=== PATIENT | female | born 1990 | race Caucasian/White ===

== ENCOUNTER 2016-12-16 14:58 | Inpatient (IN) ==
--- NOTE | 2016-12-16 17:47 | Emergency Department Note ---
Disposition Clinical Impression: Abscess, neck Disposition: Admitted As Inpatient Condition: Fair Referrals: NO,PCP [Primary Care Provider] - Forms: ED Satisfaction Letter Time of Disposition: 18:50 Skin/Abscess/FB HPI Chief complaint: ED Skin/Abscess/Foreign Body Stated complaint: neck abscess Time Seen by Provider: 12/16/16 17:42 Source: patient Mode of arrival: ambulatory Limitations: no limitations Nursing Notes Reviewed: Yes Vital Signs Reviewed: Yes HPI Narrative: Patient is a 26-year-old female with recent diagnosis of neck abscess and cellulitis yesterday in the ER. She presents today due to worsening pain in the right side of the neck. She was seen yesterday by Dr. Jean and Scottie Kimble and had a CT of the neck performed. They spoke with Dr. Westbrook yesterday who recommended against bedside I&D or drainage with a needle. The patient was placed on clindamycin, told to use warm compresses and to return today for recheck and/or sooner if she had any new or worsening symptoms. She presents today with worsening pain. She says that the redness is about the same as yesterday. Denies any fevers, nausea, vomiting, chest pain, shortness breath, dysphagia, throat swelling. She was supposed to contact Dr. Westbrook's office today but did not. Previous Rx's Medication Instructions Recorded Clindamycin [Cleocin] 300 mg PO TID 7 Days 12/15/16 Allergies Allergy/AdvReac Type Severity Reaction Status Date / Time sulfamethoxazole AdvReac See Verified 12/15/16 14:14 [From Bactrim] Comments trimethoprim [From Bactrim] AdvReac See Verified 12/15/16 14:14 Comments All systems ED: reviewed and negative except as stated. Constitutional: Denies: fever Cardiovascular: Denies: chest pain Respiratory: Denies: cough, dyspnea Gastrointestinal: Denies: abdominal pain, nausea, vomiting Musculoskeletal: Reports: neck pain Integumentary: Reports: lesions Past Medical History - Past Medical History Attestation: Yes The following information was validated with the patient. Source: patient Medical history: Reports: asthma Surgical history: Reports: Psychiatric history: Reports: no psych history [employer] history: Reports: no [employer] history - Social History Smoking Status: Current every day smoker Smokeless Tobacco Status: No Alcohol use: Reports: none Drug use: Reports: IV Drug Use Physical Exam - General Limitations: no limitations General appearance: alert, in no apparent distress - Head Head exam: atraumatic, normocephalic, normal inspection - Eye Eye exam: Present: normal appearance, PERRL, EOMI - ENT ENT exam: normal exam, normal oropharynx, mucous membranes moist - Neck Neck exam: Present: other (Fluctuant approximately 2 cm x 2 cm abscess overlying the right neck/sternocleidomastoid region. Associated cellulitis approximately 5 cm beyond abscess margin. No numbness to palpation. No active pus drainage at this time.) - Chest Chest inspection: Present: normal inspection, symmetric chest wall rise - Respiratory Respiratory exam: Present: normal lung sounds bilaterally - Cardiovascular Cardiovascular exam: Present: regular rate, normal rhythm, normal heart sounds - Extremities Exam Extremities exam: Present: normal inspection, full ROM. Absent: pedal edema - Neurological Exam Neurological exam: Present: alert, oriented X3 - Psychiatric Psychiatric exam: Present: normal affect, normal mood - Skin Skin exam: Present: warm, dry, intact, normal color Course Course Narrative: Patient is tachycardic at 113 on presentation. The rest of the vitals were within normal limits. Afebrile. Physical exam shows Fluctuant approximately 2 cm x 2 cm abscess overlying the right neck/sternocleidomastoid region. Associated cellulitis approximately 5 cm beyond abscess margin. No numbness to palpation. No active pus drainage at this time. Since patient is worsening in terms of symptoms, location of the abscess prevents bedside drainage, and surgery will not be able to see patient outpatient until monday at earliest, admission for IV antibiotics and surgery consult was discussed with the patient. She is agreeable with this plan. We will start the patient on vancomycin and clindamycin. We will draw a CBC, BMP, blood cultures. 19:59 patient is a white blood cell count of 14. Technically, with elevated white blood cell count, tachycardia, and patient meet sepsis criteria. Cultures are drawn. We will withdrawal lactic acid, will also give 30 mL per kilogram fluids. Vital Signs Temperature 97.8 F 12/16/16 15:16 Pulse Rate 113 12/16/16 15:16 Respiratory Rate 18 12/16/16 15:16 Blood Pressure 121/78 12/16/16 15:16 O2 Sat by Pulse Oximetry 99 07/21/17 15:16 Temperature 97.8 F 12/16/16 15:16 Pulse Rate 113 12/16/16 15:16 Respiratory Rate 0 12/16/16 18:19 Blood Pressure 0/0 12/16/16 18:19 O2 Sat by Pulse Oximetry 99 12/16/16 15:16 Oxygen Delivery Oxygen Delivery Room Air Skin/Abscess/Foreign Body - MDM Narrative Medical decision making narrative: Patient is tachycardic at 113 on presentation. The rest of the vitals were within normal limits. Afebrile. Physical exam shows Fluctuant approximately 2 cm x 2 cm abscess overlying the right neck/sternocleidomastoid region. Associated cellulitis approximately 5 cm beyond abscess margin. No numbness to palpation. No active pus drainage at this time. Since patient is worsening in terms of symptoms, location of the abscess prevents bedside drainage, and surgery will not be able to see patient outpatient until monday at earliest, admission for IV antibiotics and surgery consult was discussed with the patient. She is agreeable with this plan. We will start the patient on vancomycin and clindamycin. We will draw a CBC, BMP, blood cultures. 19:59 patient is a white blood cell count of 14. Technically, with elevated white blood cell count, tachycardia, and patient meet sepsis criteria. Cultures are drawn. We will withdrawal lactic acid, will also give 30 mL per kilogram fluids. Dr. Lopez consulted for abscess. Order placed. - Medical Records Medical records reviewed: Yes I reviewed the patient's medical records. - Lab Data Lab results reviewed: Yes I reviewed the patient's lab results. Result diagrams: 12/16/16 19:21 12/16/16 19:21 Lab Results 12/16/16 12/16/16 12/16/16 Range/Units 19:21 19:21 20:00 WBC 14.3 H (4.3-11.1) K/mcL RBC 4.41 (3.82-4.97) M/mcL Hgb 12.7 (11.5-15.4) g/dL Hct 38.0 (35.3-44.9) % MCV 86.2 (83.0-100.0) fL MCH 28.8 (28.0-33.3) pg MCHC 33.4 (31.6-35.5) g/dL RDW 14.7 H (11.5-14.5) % Plt Count 314 (140-400) K/mcL MPV 9.3 L (9.4-12.4) fL Immature Gran % 0.4 (0-4) % Seg Neutrophils % 90.7 % Lymphocytes % 5.6 % Monocytes % 2.4 % Eosinophils % 0.6 % Basophils % 0.3 % Neutrophils # 13.0 H (1.6-8.9) K/mcL Lymphocytes # 0.8 (0.6-4.6) K/mcL Monocytes # 0.4 (0.0-1.3) K/mcL Eosinophils # 0.1 (0.0-0.6) K/mcL Basophils # 0.1 (0.0-0.2) K/mcL Sodium 134 L (136-145) mEq/L Potassium 3.9 (3.5-4.5) mEq/L Chloride 103 (98-109) mEq/L Carbon Dioxide 23 (19-29) mEq/L BUN 14 (7-20) mg/dL Creatinine 0.65 (0.57-1.11) mg/dL Est GFR ( Amer) > 60 (> 60) Est GFR (Non-Af Amer) > 60 (> 60) BUN/Creatinine Ratio 22 (6-26) Glucose 134 H (70-99) mg/dL Calculated Osmolality 280 (280-300) Lactic Acid 2.4 H (0.5-2.2) mmol/L Calcium 9.4 (8.6-10.8) mg/dL S.B.A.R. - S.B.A.R. Situation: Demographics, MOA Background: Presenting Complaint, Relevant PMH, Meds, & Allergies Assessment: Vital Signs, Course and respsone to treatment, Exam Concerns, Patient/Family Expectation, Pertinant Lab Results, Outstanding Labs Recommendation: Barrier(s) to disposition, Recommendation based on pending studies, treatments, or consults Attestation Statement - Attestation Attestation: I examined this patient and my medical decision-making was reviewed with the Resident Physician. I agree with the documented findings, disposition and treatment plan as described except to the extent set forth below. Patient emergency department with an abscess on her neck. Seen yesterday for the same. She had a CT scan done. I discussed with surgery who would see her as an outpatient. She has not called to arrange follow-up. Placed on clindamycin. She states is more painful. Plan. IV antibiotics and admit. Antibiotics starting. Patient meets SIRS/sepsis criteria with tachycardia and elevated white blood cell count.
[2016-12-16] MEDS ORDERED: Clindamycin 900 MG/50 ML 900 MG/50 ML IV.SOLN IVPB ONE (18:42)
[2016-12-16] MEDS ORDERED: Vancomycin 750 MG in D5% in Water 250 ML IVPB ONE (18:42)
[2016-12-16 19:27] LABS: Basophils # 0.1 K/mcL (0.0-0.2); Basophils % 0.3 %; Eosinophils # 0.1 K/mcL (0.0-0.6); Eosinophils % 0.6 %; Hemoglobin 12.7 g/dL (11.5-15.4); Immature Granulocytes % 0.4 % (0-4); Lymphocytes # 0.8 K/mcL (0.6-4.6); Lymphocytes % 5.6 %; Mean Corpuscular HGB Conc 33.4 g/dL (31.6-35.5); Mean Corpuscular Hemoglobin 28.8 pg (28.0-33.3); Mean Corpuscular Volume 86.2 fL (83.0-100.0); Mean Platelet Volume 9.3 fL (9.4-12.4); Monocytes # 0.4 K/mcL (0.0-1.3); Monocytes % 2.4 %; Platelet Count 314 K/mcL (140-400); Red Blood Count 4.41 M/mcL (3.82-4.97); Red Cell Distribution Width 14.7 % (11.5-14.5); Segmented Neutrophils % 90.7 %
[2016-12-16 19:39] LABS: BUN/Creatinine Ratio 22 (6-26); Blood Urea Nitrogen 14 mg/dL (7-20); Calcium 9.4 mg/dL (8.6-10.8); Carbon Dioxide 23 mEq/L (19-29); Chloride 103 mEq/L (98-109); Glucose 134 mg/dL (70-99); Osmolality,Calculated 280 (280-300); Potassium 3.9 mEq/L (3.5-4.5); Sodium 134 mEq/L (136-145); eGFR For African Americans > 60 (> 60); eGFR For Non-African Americans > 60 (> 60)
[2016-12-16] MEDS ORDERED: 0.9 % Sodium Chloride 1,000 ML IVC ONE ×2 (19:46)
[2016-12-17] MEDS ORDERED: Ondansetron 4 MG/2 ML VIAL IVP PRN (00:05)
[2016-12-17] MEDS ORDERED: Naloxone 0.4 MG/ML INJ IVP PRN (00:05)
--- NOTE | 2016-12-17 00:10 | Internal Med History&Physical ---
Date of Encounter: 12/17/16 Time of Encounter: 00:20 Assessment and Plan (1) Abscess of skin or subcutaneous tissue Current visit: No Status: Acute Abscess over right-side of neck Continue IV vancomycin and IV clindamycin IV morphine when necessary Cultures pending CT scan of the neck done on 12/15/2016 - shows a peripherally enhancing low attenuation collection in the right lateral lower neck within more superficial to right sternocleidomastoid consistent with abscess and overlying cellulitis Surgery consult pending labs in a.m. Qualifiers: Site of cutaneous abscess: neck Qualified Code(s): L02.11 - Cutaneous abscess of neck (2) Hepatitis C Current visit: No Status: Chronic Qualifiers: Viral hepatitis chronicity: chronic Hepatic coma status: without hepatic coma Qualified Code(s): B18.2 - Chronic viral hepatitis C (3) Asthma Current visit: No Status: Chronic No acute exacerbation Qualifiers: Asthma severity: mild intermittent Asthma complication type: uncomplicated Qualified Code(s): J45.20 - Mild intermittent asthma, uncomplicated (4) Tobacco abuse Current visit: Yes Status: Acute Counseled about cessation, Nicotine Patch Internal Medicine - H&P: HPI Chief complaint: Abscess of her neck Admitted From: Emergency Dept Plans for Post Hospital Care: Home History of present illness: Ms. Manzo is a 26 year old female with past medical history of asthma and hepatitis C. She presents to the ED with complaints of right neck pain and swelling. On examination patient is awake and alert. Not in any distress. Able to provide history. Family is at bedside. Patient states she developed a small boil on the right side of her neck about 4 days ago. It is gradually worsened in terms of size and her pain is also worsening. Patient states pain is worse when she tries to turn her head to either side. She denies fever, denies nausea or vomiting or chest pain or shortness of breath or throat swelling or dysphagia. No discharge from abscess site. Patient was placed on clindamycin and has also been told to use for compresses. Patient had a surgical outpatient follow-up scheduled. She states the redness and pain is worsening. Rates the pain 7 out of 10. No other associated symptoms. Patient is being admitted for abscess on the right side of her neck. She will be on IV vancomycin and IV clindamycin. Surgical consult pending. I&D will be required. Patient has been explained about her condition and plan of care. Understood and agreed. No unanswered questions. CODE STATUS full code. Past Med Surg Social Fam HX - Past Medical History Medical history: asthma, hepatitis (Chronic hepatitis C) Psychiatric history: no psych history - Past Surgical History Surgical History: - Social History Smoking Status: Current every day smoker Packs per day: 1 pack Smokeless Tobacco Status: No Alcohol use: none Drug use: IV Drug Use - Family History Mother Hx Family Cardiac Disorders: Yes (HTN) Hx Family Endocrine Disorder: Yes (DM) Father Hx Family Medical Disorders: No Internal Medicine - H&P: Meds Clindamycin [Cleocin] 300 mg PO TID 7 Days 12/15/16 [Rx] Allergies sulfamethoxazole [From Bactrim] Adverse Reaction (Verified 12/15/16 14:14) See Comments trimethoprim [From Bactrim] Adverse Reaction (Verified 12/15/16 14:14) See Comments All Systems PM: A 10-system review of systems was performed and is negative for pertinent findings except as documented above in the HPI. - Constitutional Constitutional: no fatigue, no fever(s), no weakness - EENT Eyes: no blurry vision - Cardiovascular Cardiovascular ROS IM: no chest pain, no diaphoresis, no dyspnea, no dyspnea on exertion, no lightheadedness, no orthopnea, no syncope - Respiratory Respiratory: no cough, no dyspnea, no dyspnea on exertion, no wheezing, no chest congestion - Gastrointestinal Gastrointestinal: no abdominal pain, no belching, no diarrhea, no melena, no nausea, no vomiting - Genitourinary Genitourinary: no dysuria - Musculoskeletal Musculoskeletal ROS IM: no arthralgias - Integumentary Additional comments: Right side of neck abscess - with pain and redness - Neurological Neurological ROS: no abnormal gait, no confusion, no dizziness, no numbness, no tingling - Constitutional Vitals: Temp Pulse Resp BP Pulse Ox 97.8 F 87 14 116/71 100 12/16/16 21:52 12/16/16 21:52 12/16/16 21:52 12/16/16 21:52 12/16/16 21:52 General appearance: Present: A&O X 3, no acute distress, underweight, answers questions appropriately - Head Head exam: Present: atraumatic - Eye Eye exam: Present: EOMI - ENT ENT exam: Present: mucous membranes moist - Neck Additional comments: Fluctuant 2 cm x 2 cm abscess of the right side of neck and the sternocleidomastoid region with associated cellulitis beyond the margin of the abscess. Tenderness present no active pus or drainage. - Respiratory Respiratory exam: Present: CTAB. Absent: chest wall tenderness, rales, rhonchi , stridor, wheezes, tachypnea - Cardiovascular Cardiovascular exam: Present: RRR, +S1, +S2 - GI/Abdominal GI/Abdominal exam: Present: soft, no peritoneal signs. Absent: distended, firm , guarding, rigid, tenderness - Extremities Exam Extremities exam: Present: radial pulses palpable and symetrical. Absent: cyanotic, pedal edema, tenderness - Neurological Exam Neurological exam: Present: alert, oriented X3, no focal deficits. Absent: facial droop, speech deficit Internal Med - H&P Results - Labs CBC & Chem 7: 12/16/16 19:21 12/16/16 19:21
[2016-12-17] MEDS: 0.9 % Sodium Chloride 1,000 ML IVC SCH ×2 (00:36→23:19)
[2016-12-17] MEDS: Famotidine 20 MG/2 ML VIAL IVP SCH ×2 (05:29→22:06)
[2016-12-17] MEDS: Vancomycin 1,000 MG in D5% in Water 250 ML IVPB SCH ×2 (05:29→21:59)
[2016-12-17] MEDS ORDERED: Vancomycin 1,000 MG in D5% in Water 250 ML IVPB SCH (06:00)
[2016-12-17] MEDS: Acetaminophen 325 MG TABLET PO PRN ×2 (06:01→16:57)
[2016-12-17 06:12] LABS: Bilirubin,Urine Negative (Negative); Blood,Urine Negative (Negative); Clarity,Urine Clear (Clear); Color,Urine Yellow (Yellow); Glucose,Urine (UA) Normal (Normal); Ketones,Urine Negative (Negative); Leukocyte Esterase,Urine Negative (Negative); Nitrite,Urine Negative (Negative); Protein,Urine Negative (Neg-Trace); Urobilinogen,Urine Normal (Normal)
[2016-12-17 06:43] LABS: Basophils # 0.1 K/mcL (0.0-0.2); Basophils % 0.5 %; Eosinophils # 0.3 K/mcL (0.0-0.6); Eosinophils % 2.7 %; Hematocrit 34.6 % (35.3-44.9); Hemoglobin 11.4 g/dL (11.5-15.4); Immature Granulocytes % 0.4 % (0-4); Lymphocytes # 1.5 K/mcL (0.6-4.6); Lymphocytes % 15.7 %; Mean Corpuscular HGB Conc 32.9 g/dL (31.6-35.5); Mean Corpuscular Hemoglobin 28.4 pg (28.0-33.3); Mean Corpuscular Volume 86.3 fL (83.0-100.0); Mean Platelet Volume 9.6 fL (9.4-12.4); Monocytes # 0.5 K/mcL (0.0-1.3); Monocytes % 5.2 %; Neutrophils # 7.4 K/mcL (1.6-8.9); Platelet Count 302 K/mcL (140-400); Red Blood Count 4.01 M/mcL (3.82-4.97); Red Cell Distribution Width 14.7 % (11.5-14.5); Segmented Neutrophils % 75.5 %
[2016-12-17 06:53] LABS: Alanine Aminotransferase 22 Units/L (0-55); Albumin 3.2 g/dL (3.5-5.0); Albumin/Globulin Ratio 0.9 (1.1-2.2); Alkaline Phosphatase 64 Units/L (38-126); Aspartate Amino Transferase 24 Units/L (5-34); BUN/Creatinine Ratio 16 (6-26); Bilirubin,Total 0.3 mg/dL (0.2-1.2); Blood Urea Nitrogen 10 mg/dL (7-20); Carbon Dioxide 25 mEq/L (19-29); Chloride 105 mEq/L (98-109); Globulin 3.7 g/dL (2.4-3.5); Glucose 134 mg/dL (70-99); Magnesium 1.7 mg/dL (1.6-2.6); Osmolality,Calculated 281 (280-300); Potassium 3.8 mEq/L (3.5-4.5); Sodium 135 mEq/L (136-145); Total Protein 6.9 g/dL (6.0-8.3); eGFR For African Americans > 60 (> 60); eGFR For Non-African Americans > 60 (> 60)
[2016-12-17] MEDS: Clindamycin 900 MG/50 ML 900 MG/50 ML IV.SOLN IVPB SCH ×3 (09:06→23:18)
[2016-12-17] MEDS: Nicotine 21 MG PATCH.TD24 TD SCH (09:06)
--- NOTE | 2016-12-17 09:17 | General Surgery Consult Note ---
Date of Encounter: 12/17/16 Time of Encounter: 09:14 Assessment and Plan (1) Abscess, neck Current Visit: Yes Status: Acute I explained to the patient that we will perform an I&D of the right lateral neck abscess at the bedside. Continue IV abx. Will write orders for dressing changes as well. History of Present Illness Consult date: 12/17/16 Reason for consult: other (Right lateral neck abscess) Requesting physician: Frances Fitzgerald History of present illness: The patient is a 26 year old female who states that 5 days ago she noted swelling along the right lateral neck near the collar bone. She denies any trauma or bites to the area and states over the following several days the swelling increased along with redness. She presented to the ER approximately [address] days [address] scan was performed demonstrating an abscess along the lateral border of the sternocledomastoid muscle. She was started on oral antibiotics and surgery was contacted who, per the report, recommend against I&D. Over the next 24 hours the swelling continued to increase and she presented to he ER on for further evaluation of the abscess. She denies any drainage from the area. Past Med Surg Social Fam HX - Past Medical History Medical history: asthma, hepatitis (Chronic hepatitis C) Psychiatric history: no psych history - Past Surgical History Surgical History: - Social History Smoking Status: Current every day smoker Packs per day: 1 pack Smokeless Tobacco Status: No Alcohol use: none Drug use: IV Drug Use - Family History Mother Hx Family Cardiac Disorders: Yes (HTN) Hx Family Endocrine Disorder: Yes (DM) Father Hx Family Medical Disorders: No Medications and Allergies Clindamycin [Cleocin] 300 mg PO TID 7 Days 12/15/16 [Rx] Allergies sulfamethoxazole [From Bactrim] Adverse Reaction (Verified 12/15/16 14:14) See Comments trimethoprim [From Bactrim] Adverse Reaction (Verified 12/15/16 14:14) See Comments Review of Systems All systems PM: reviewed and no additional remarkable complaints except as stated All systems PM: A 10-system review of systems was performed and is negative for pertinent findings except as documented above in the HPI. General Surgery Exam Initial Vital Signs Temp Pulse Resp BP Pulse Ox 97.8 F 113 18 121/78 99 12/16/16 15:16 12/16/16 15:16 12/16/16 15:16 12/16/16 15:16 12/16/16 15:16 - General physical appearance well nourished, no distress - Eyes PERRL, normal ocular movement - Neck other (Along the left lateral neck on the posterior edge of the sternocleidomastoid muscle (near the collar bone) there is erythema and a 2- 2.5cm swelling that is tender. Fluctuant.) - Respiratory normal expansion, normal respiratory effort, clear to auscultation - Cardiovascular Cardiovascular exam: Present: RRR, no murmurs/rubs/gallops - Neurologic Present: CN 2-12 grossly intact - Musculoskeletal Present: other (No clubbing, cyanosis, or edema.) Exam Initial Vital Signs Temp Pulse Resp BP Pulse Ox 97.8 F 113 18 121/78 99 12/16/16 15:16 12/16/16 15:16 12/16/16 15:16 12/16/16 15:16 12/16/16 15:16 Results - Labs 12/17/16 06:15 12/17/16 06:15 Abnormal lab results Hgb 11.4 g/dL (11.5-15.4) L 12/17/16 06:15 Hct 34.6 % (35.3-44.9) L 12/17/16 06:15 RDW 14.7 % (11.5-14.5) H 12/17/16 06:15 Sodium 135 mEq/L (136-145) L 12/17/16 06:15 Glucose 134 mg/dL (70-99) H 12/17/16 06:15 POC Glucose 109 (58-89) H 12/17/16 05:53 Lactic Acid 2.4 mmol/L (0.5-2.2) H 12/16/16 20:00 Albumin 3.2 g/dL (3.5-5.0) L 12/17/16 06:15 Globulin 3.7 g/dL (2.4-3.5) H 12/17/16 06:15 Albumin/Globulin Ratio 0.9 (1.1-2.2) L 12/17/16 06:15 Diabetes panel 12/17/16 Range/Units 06:15 Sodium 135 L (136-145) mEq/L Potassium 3.8 (3.5-4.5) mEq/L Chloride 105 (98-109) mEq/L Carbon Dioxide 25 (19-29) mEq/L BUN 10 (7-20) mg/dL Creatinine 0.63 (0.57-1.11) mg/dL Glucose 134 H (70-99) mg/dL Calcium 9.0 (8.6-10.8) mg/dL AST 24 (5-34) Units/L ALT 22 (0-55) Units/L Alkaline Phosphatase 64 (38-126) Units/L Albumin 3.2 L (3.5-5.0) g/dL Calcium panel 12/17/16 Range/Units 06:15 Calcium 9.0 (8.6-10.8) mg/dL Albumin 3.2 L (3.5-5.0) g/dL Pituitary panel 12/17/16 Range/Units 06:15 Sodium 135 L (136-145) mEq/L Potassium 3.8 (3.5-4.5) mEq/L Chloride 105 (98-109) mEq/L Carbon Dioxide 25 (19-29) mEq/L BUN 10 (7-20) mg/dL Creatinine 0.63 (0.57-1.11) mg/dL Glucose 134 H (70-99) mg/dL Calcium 9.0 (8.6-10.8) mg/dL Adrenal panel 12/17/16 Range/Units 06:15 Sodium 135 L (136-145) mEq/L Potassium 3.8 (3.5-4.5) mEq/L Chloride 105 (98-109) mEq/L Carbon Dioxide 25 (19-29) mEq/L BUN 10 (7-20) mg/dL Creatinine 0.63 (0.57-1.11) mg/dL Glucose 134 H (70-99) mg/dL Calcium 9.0 (8.6-10.8) mg/dL Total Bilirubin 0.3 (0.2-1.2) mg/dL AST 24 (5-34) Units/L ALT 22 (0-55) Units/L Alkaline Phosphatase 64 (38-126) Units/L Albumin 3.2 L (3.5-5.0) g/dL All other labs normal. - Imaging Additional studies: CT scan of the neck reviewed personally by me shows an abscess near the sternocleidomastoid muscle. No involvement of the IJ vein or carotid. Consult Discharge Plan - Plan Referrals: NO,PCP [Primary Care Provider] -
[2016-12-17] MEDS ORDERED: Lidocaine 1% 20 ML MDV ID ONE (09:27)
[2016-12-17 10:08] LABS: Amphetamine Screen,Urine Positive ng/mL (Cutoff=1000); Barbiturate Screen,Urine Negative ng/mL (Cutoff=200); Benzodiazepines Screen,Urine Positive ng/mL (Cutoff=200); Cannabinoid Screen,Urine Negative ng/mL (Cutoff = 50); Cocaine Screen,Urine Negative ng/mL (Cutoff= 300); Opiate Screen,Urine Negative ng/mL (Cutoff=300); Phencyclidine Screen,Urine Negative ng/mL (Cutoff=25)
[2016-12-17] MEDS: *HR* Morphine 2 MG/ML SYRINGE IVP PRN ×3 (10:19→22:06)
--- NOTE | 2016-12-17 10:38 | Event Note ---
Date of Encounter: 12/17/16 Time of Encounter: 10:33 After identifying the patient, the patient's right lateral neck was prepped and draped in a normal sterile fashion. 1% lidocaine was used to infiltrate the epidermal and dermis. A 27 gauge needle was used to decompress the abscess with removal of 1ml of exudate. This was cultured and sent to microbiology. An 11 blade scalpel was used to make a 1-1.5cm incision and exudate was immediately expressed. 1/2 inch plain nugauze was used to pack the wound and the wound was covered by a 4x4 gauze dressing.
[2016-12-18] MEDS: Famotidine 20 MG/2 ML VIAL IVP SCH (05:24)
[2016-12-18 10:53] VITALS: BP 107/76
[2016-12-18] MEDS: Nicotine 21 MG PATCH.TD24 TD SCH (11:00)
--- NOTE | 2016-12-18 11:42 | General Surgery Progress Note ---
<Lobo Coley - Last Filed: 12/18/16 11:39> Date of Encounter: 12/18/16 Time of Encounter: 11:39 - Assessment and Plan (1) Abscess of skin or subcutaneous tissue Status: Acute Status post I&D by Dr. Lopez on 12/17/2016 Cultures were taking - preliminary results show no growth Continue IV antibiotics with Cleocin and vancomycin Daily wound care - soap and water, packed with plain iodoform gauze, 4 x 4, tape to secure Pain and erythema are significantly improved today. Surgery will sign off at this time. Thank you for allowing us to participate in this patient's care. Please call if you have any questions or concerns. Wound care instructions for discharge were documented. Follow-up in 1-2 weeks with surgical office for reevaluation. Qualifiers: Site of cutaneous abscess: neck Qualified Code(s): L02.11 - Cutaneous abscess of neck (2) Hepatitis C Status: Chronic History of IV drug use Qualifiers: Viral hepatitis chronicity: chronic Hepatic coma status: without hepatic coma Qualified Code(s): B18.2 - Chronic viral hepatitis C (3) Asthma Status: Chronic Qualifiers: Asthma severity: mild intermittent Asthma complication type: uncomplicated Qualified Code(s): J45.20 - Mild intermittent asthma, uncomplicated (4) Tobacco abuse Status: Chronic Nicotine patch Subjective Patient reports: feels better, pain is less, tolerating a regular diet, afebrile , other Narrative: Patient is ambulating around room well. Per nursing - patient has left the 3A twice yesterday and has had several counts of suspicious activity within the room involving the boyfriend and guests. Objective Vital Signs - Last 8 Hours Temp Pulse Resp BP Pulse Ox 12/18/16 10:52 98.6 F 79 15 107/76 96 12/18/16 07:26 98.2 F 90 15 121/77 95 12/18/16 04:31 98.5 F 75 16 120/83 95 Intake and Output 12/17/16 12/18/16 12/18/16 23:59 07:59 15:59 Intake Total 300 / 300 120 / 120 120 / 120 Balance 300 / 300 120 / 120 120 / 120 Intake: IV Fluids 300 / 300 Cleocin Premix 900 MG/50 50 / 50 ML 900 mg In 50 ml @ 50 mls/hr IVPB Q8HR [facility] Rx#: [id number] Vancocin 1,000 MG In 250 / 250 Dextrose 5% 250 ML @ 167 mls/hr IVPB Q12H [facility] Rx#: [id number] Oral 0 / 0 120 / 120 120 / 120 Other: # Voids 1 1 2 Weight 57.425 kg Patient Weight 12/18/16 23:59 Weight 57.425 kg - General physical appearance well developed, well nourished, no distress - Eyes normal ocular movement - ENT atraumatic, normocephalic - Neck Neck exam: trachea midline - Respiratory normal expansion, normal respiratory effort, clear to auscultation - Cardiovascular Cardiovascular exam: Present: RRR - Abdomen Abdomen: Present: bowel sounds present, soft, non tender - Incision Incision: Present: clean and dry (Wound about distal SCM and clavicle - 4 x 4 dressing with tape intact. Minimal amount of drainage with packing present. Minimal erythema noted.), intact - Neurologic CN 2-12 grossly intact - Psychiatric oriented to time, oriented to person, oriented to place, speech is normal, memory intact - Labs 12/17/16 06:15 12/17/16 06:15 Vital Signs Temp Pulse Resp BP Pulse Ox 12/18/16 10:52 98.6 F 79 15 107/76 96 12/18/16 07:26 98.2 F 90 15 121/77 95 12/18/16 04:31 98.5 F 75 16 120/83 95 12/17/16 23:38 97.9 F 76 16 110/71 95 12/17/16 20:19 98.2 F 83 20 117/69 99 12/17/16 14:58 97.8 F 88 20 113/75 93 12/17/16 12:26 98.5 F 92 18 116/74 95 Intake and Output 12/17/16 12/18/16 12/18/16 23:59 07:59 15:59 Intake Total 300 / 300 120 / 120 120 / 120 Balance 300 / 300 120 / 120 120 / 120 Intake: IV Fluids 300 / 300 Cleocin Premix 900 MG/50 50 / 50 ML 900 mg In 50 ml @ 50 mls/hr IVPB Q8HR [facility] Rx#: [id number] Vancocin 1,000 MG In 250 / 250 Dextrose 5% 250 ML @ 167 mls/hr IVPB Q12H [facility] Rx#: [id number] Oral 0 / 0 120 / 120 120 / 120 Other: # Voids 1 1 2 Weight 57.425 kg Patient Weight 12/18/16 23:59 Weight 57.425 kg Consult Discharge Plan - Plan Additional Instructions: Wound care instructions: Remove dressing and packing daily before shower with soap and water. Repack with plain iodoform gauze followed by 4 x 4 dressing. Cover with tape to secure. Follow-up at the surgical office in 1-2 weeks for reevaluation Referrals: NO,PCP [Primary Care Provider] - Fito Lopez MD [Partnered Physician] - <Fito Lopez - Last Filed: 12/18/16 15:49> Date of Encounter: 12/18/16 - Assessment and Plan (1) Abscess, neck Status: Acute Objective Vital Signs - Last 8 Hours Temp Pulse Resp BP Pulse Ox 12/18/16 10:52 98.6 F 79 15 107/76 96 Intake and Output 12/17/16 12/18/16 12/18/16 23:59 07:59 15:59 Intake Total 300 / 300 120 / 120 120 / 120 Balance 300 / 300 120 / 120 120 / 120 Intake: IV Fluids 300 / 300 Cleocin Premix 900 MG/50 50 / 50 ML 900 mg In 50 ml @ 50 mls/hr IVPB Q8HR [facility] Rx#: [id number] Vancocin 1,000 MG In 250 / 250 Dextrose 5% 250 ML @ 167 mls/hr IVPB Q12H [facility] Rx#: [id number] Oral 0 / 0 120 / 120 120 / 120 Other: Percent of Meal Consumed 0% # Voids 1 1 2 Weight 57.425 kg Patient Weight 12/18/16 23:59 Weight 57.425 kg - Labs 12/17/16 06:15 12/17/16 06:15 - Attending Attestation I examined this patient and my medical decision-making was reviewed with the Resident Physician. I agree with the documented findings, disposition and treatment plan as described except to the extent set forth below. I reviewed the above assessment and evaluation with the resident present and I agree with the above plan. Will set up for outpatient evaluation of the incision site in 2-3 weeks.
[2016-12-18] MEDS ORDERED: Aminoglycoside Consult 1 EACH MC ONE (13:29)
--- NOTE | 2016-12-18 16:29 | Internal Med Progress Note ---
Date of Encounter: 12/18/16 (Late entry) Time of Encounter: 16:27 (Late entry) - Assessment and plan (1) Abscess of skin or subcutaneous tissue Status: Acute Qualifiers: Site of cutaneous abscess: neck Qualified Code(s): L02.11 - Cutaneous abscess of neck (2) Hepatitis C Status: Chronic Qualifiers: Viral hepatitis chronicity: chronic Hepatic coma status: without hepatic coma Qualified Code(s): B18.2 - Chronic viral hepatitis C (3) Asthma Status: Chronic Qualifiers: Asthma severity: mild intermittent Asthma complication type: uncomplicated Qualified Code(s): J45.20 - Mild intermittent asthma, uncomplicated (4) Abscess, neck Status: Acute (5) Tobacco abuse Status: Chronic - Subjective Interval history: Patient admitted for neck abscess which had been drained. As I examined it does not much surrounding erythema and duration pain. Packing noted. No discharge. - Constitutional Vitals: Temp Pulse Resp BP Pulse Ox 98.6 F 79 15 107/76 96 12/18/16 10:52 12/18/16 10:52 12/18/16 10:52 12/18/16 10:52 12/18/16 10:52 General appearance: Present: A&O X 3, no acute distress, underweight, answers questions appropriately - Head Head exam: Present: atraumatic, normocephalic - Eye Eye exam: Present: PERRL, conjuntiva pink, sclera anicteric Pupils: Present: PERRL - Neck Neck exam general surgery: Present: supple, trachea midline. Absent: lymphadenopathy Additional comments: Neck incision and drainage wound noted on the right side surrounding mild erythema but no induration or discharge - Respiratory Respiratory exam: Present: CTAB. Absent: accessory muscle use, rales, rhonchi, wheezes - Cardiovascular Cardiovascular exam: Present: RRR, +S1, +S2. Absent: diastolic murmur, gallop, rubs, systolic murmur - GI/Abdominal GI/Abdominal exam: Present: normal bowel sounds, soft, no peritoneal signs. Absent: distended, tenderness - Extremities Exam Extremities exam: Present: warm, radial pulses palpable and symetrical. Absent : calf tenderness, cyanotic, pedal edema - Neurological Exam Neurological exam: Present: CN II-XII intact, oriented X3, no focal deficits. Absent: pronater drift, facial droop, speech deficit - Skin Skin exam: Present: dry, intact Internal Medicine: Result - Labs CBC & Chem 7: 12/17/16 06:15 12/17/16 06:15 - ABG Interpretation ABG results: PT/INR, D-dimer PT 11.0 Seconds (9.4-12.1) 12/17/16 06:15 Consult Discharge Plan - Plan Additional Instructions: Wound care instructions: Remove dressing and packing daily before shower with soap and water. Repack with plain iodoform gauze followed by 4 x 4 dressing. Cover with tape to secure. Follow-up at the surgical office in 1-2 weeks for reevaluation Referrals: Fito Lopez MD [Partnered Physician] - NO,PCP [Primary Care Provider] -
--- NOTE | 2016-12-18 16:32 | Discharge Summary ---
Date of Encounter: 12/18/16 Time of Encounter: 16:30 - Discharge Diagnosis (1) Abscess of skin or subcutaneous tissue Priority: Primary Status: Acute Qualifiers: Site of cutaneous abscess: neck Qualified Code(s): L02.11 - Cutaneous abscess of neck (2) Hepatitis C Priority: Secondary Status: Chronic Qualifiers: Viral hepatitis chronicity: chronic Hepatic coma status: without hepatic coma Qualified Code(s): B18.2 - Chronic viral hepatitis C (3) Asthma Priority: Secondary Status: Chronic Qualifiers: Asthma severity: mild intermittent Asthma complication type: uncomplicated Qualified Code(s): J45.20 - Mild intermittent asthma, uncomplicated (4) Abscess, neck Priority: Primary Status: Acute (5) Tobacco abuse Priority: Secondary Status: Chronic - Discharge Medications Home Medications: Clindamycin [Cleocin] 300 mg PO TID 7 Days 12/15/16 [Rx] Allergies/Adverse Reactions: Allergies sulfamethoxazole [From Bactrim] Adverse Reaction (Verified 12/15/16 14:14) See Comments trimethoprim [From Bactrim] Adverse Reaction (Verified 12/15/16 14:14) See Comments Date of admission: 12/17/16 00:05 Primary care physician: PCP DEVEN Discharging clinician: Saw Cullen Anticipated date of discharge: 12/18/16 - Patient Status Disposition: Left Against Medical Advice Condition: Fair Overall status at discharge: patient is progressing back to baseline - Discharge Instructions Follow Up With: Fito Lopez MD [Partnered Physician] - NO,PCP [Primary Care Provider] - Additional Instructions: Wound care instructions: Remove dressing and packing daily before shower with soap and water. Repack with plain iodoform gauze followed by 4 x 4 dressing. Cover with tape to secure. Follow-up at the surgical office in 1-2 weeks for reevaluation Hospital course: Ms. Manzo is a 26 year old female admitted for neck wound and started on IV antibiotics. Surgery was consulted and incision and drainage was performed. I L I examined the wound and it seems to be improving and there is not much discharge. We are waiting for cultures. Patient insisted to leave. We offered her that we can write some oral antibiotics provided the fact that she should not leave AGAINST MEDICAL ADVICE as it may jeopardize her care and increase the risk of morbidity and mortality. However patient did not wait for us and left AMA. - Time Spent with Patient Total time spent providing and/or coordinating discharge services: - Constitutional Vitals: Temp Pulse Resp BP Pulse Ox 98.6 F 79 15 107/76 96 12/18/16 10:52 12/18/16 10:52 12/18/16 10:52 12/18/16 10:52 12/18/16 10:52 General appearance: Present: A&O X 3, no acute distress, underweight, answers questions appropriately
--- NOTE | 2016-12-19 13:17 | Electrocardiograph Report ---
[place] [id number] Test Date: 2016-12-17 Pat Name: Declan Manzo Department: 115 Room: 3A36 Gender: [employer] Operator: [id number] : 1990 Requested By: Sawyer Ruiz Order Number: [id number] Reading MD: Markus Darling MD Measurements Intervals [place] Rate: 81 P: 62 MS: 136 QRS: 69 QRSD: 81 T: 52 QT: 353 QTc: 390 Interpretive Statements SINUS RHYTHM WITH SINUS ARRHYTHMIA BASELINE ARTIFACT Electronically Signed On 12-19-2016 13:15:39 EDT by Markus Darling MD
== END 2016-12-18 13:30 | disposition left against medical advice (07) | DRG 383 ==
LOC: 3ANU 14:58 → EMEROO 14:58 → 3ANU 21:51
PROVIDERS: ADMIT Family Medicine; ATTEND Internal Medicine